=== PATIENT | female | born 1990 ===

== ENCOUNTER 2018-03-19 15:15 | Emergency (ER) | payer OTHER ==
[2018-03-19 15:26] VITALS: RESP 16
--- NOTE | 2018-03-19 16:29 | ED PDOC ---
HPI: Abdomen Time Seen by Provider: 03/19/18 16:10 Chief Complaint (Nursing): GI Problem Chief Complaint (Provider): Nausea and inability to tolerate PO History Per: Patient History/Exam Limitations: no limitations Onset/Duration Of Symptoms: Days (x2 weeks) Current Symptoms Are (Timing): Still Present Associated Symptoms: Nausea, Vomiting (slight), Loss Of Appetite. denies: Fever , Chills, Diarrhea, Chest Pain Additional Complaint(s): Eva Cameron is a 27 year old female, with no significant past medical history, who presents to the emergency department complaining of nausea and inability to tolerate PO intake onset for x2 weeks. Patient is aware of her and has an appointment on 03/30/18 but states it too far away and couldn't wait. Patient states she is unable to keep any food or liquids down and has tried different liquids but vomits it up. Patient further states she feels like she will faint. She denies any fever, chills, chest pain, shortness of breath or diarrhea. She is currently taking vitamins. No further medical complaints. PMD: None provided. Past Medical History Reviewed: Historical Data, Nursing Documentation, Vital Signs Vital Signs: Last Vital Signs Temp 98.2 F 03/19/18 15:24 Pulse 78 03/19/18 15:24 Resp 16 03/19/18 15:24 BP 119/65 03/19/18 15:24 Pulse Ox 99 03/19/18 17:11 - Medical History PMH: No Chronic Diseases - Surgical History Surgical History: No Surg Hx - Family History Family History: States: Unknown Family Hx - Social History Current smoker - smoking cessation education provided: No Alcohol: None Drugs: Denies - Home Medications Home Medications: Ambulatory Orders Medication Instructions Recorded Ondansetron [Zofran] 4 mg PO Q8H PRN #6 tab 09/23/15 Famotidine [Pepcid] 20 mg PO BID #28 tab 03/19/18 Ondansetron [Zofran] 4 mg PO Q8H #9 tab 03/19/18 - Allergies Allergies/Adverse Reactions: Allergies Allergy/AdvReac Type Severity Reaction Status Date / Time No Known Allergies Allergy Verified 09/23/15 13:38 Review of Systems ROS Statement: Except As Marked, All Systems Reviewed And Found Negative Constitutional: Negative for: Fever, Chills Cardiovascular: Negative for: Chest Pain Respiratory: Negative for: Shortness of Breath Gastrointestinal: Positive for: Nausea, Vomiting (slight), Other (inability to tolerate PO intake). Negative for: Diarrhea Neurological: Positive for: Other (feels like she is about to faint) Physical Exam - Reviewed Nursing Documentation Reviewed: Yes Vital Signs Reviewed: Yes - Physical Exam Appears: Positive for: Non-toxic, No Acute Distress Head Exam: Positive for: ATRAUMATIC, NORMAL INSPECTION, NORMOCEPHALIC Skin: Positive for: Normal Color, Warm, Dry Eye Exam: Positive for: Normal appearance, EOMI, PERRL ENT: Positive for: Normal ENT Inspection (moist mucous membranes) Neck: Positive for: Painless ROM Cardiovascular/Chest: Positive for: Regular Rate, Rhythm. Negative for: Murmur Respiratory: Positive for: Normal Breath Sounds. Negative for: Respiratory Distress Gastrointestinal/Abdominal: Positive for: Normal Exam, Soft. Negative for: Tenderness Back: Positive for: Normal Inspection Extremity: Positive for: Normal ROM (upper and lower extremities). Negative for : Deformity, Swelling Neurologic/Psych: Positive for: Alert, Oriented (x3). Negative for: Motor/ Sensory Deficits - ECG O2 Sat by Pulse Oximetry: 99 (RA) Pulse Ox Interpretation: Normal Medical Decision Making Medical Decision Making: Time: 16:10 Initial Impression: related symptoms Initial Plan: --Urine dipstick -- test --Zofran Inj 4 mg IM --Reevaluation -Patient refused labs stating she wants to leave quick. ~ Scribe Attestation: Documented by Jared Khoury, acting as a scribe for Francesca Bhatti MD. Provider Scribe Attestation: All medical record entries made by the Scribe were at my direction and personally dictated by me. I have reviewed the chart and agree that the record accurately reflects my personal performance of the history, physical exam, medical decision making, and the department course for this patient. I have also personally directed, reviewed, and agree with the discharge instructions and disposition. Disposition - Clinical Impression Clinical Impression: Nausea and vomiting in - Patient ED Disposition Is Patient to be Admitted: No Doctor Will See Patient In The: Office Counseled Patient/Family Regarding: Diagnosis, Need For Followup, Rx Given - Disposition Referrals: [facility] [Outside] [facility] [Outside] [facility] [Outside] Disposition: Routine/Home Disposition Time: 17:00 Condition: IMPROVED Prescriptions: Famotidine [Pepcid] 20 mg PO BID #28 tab Ondansetron [Zofran] 4 mg PO Q8H #9 tab Instructions: Nausea and Vomiting of (DC) Forms: [facility] (Filipino) Print Language: [place] - POA Present On Arrival: None
[2018-03-19 18:02] VITALS: BP 126/65; PULSE 68; TEMP 98; O2SAT 100
== END 2018-03-19 17:55 | disposition home or self-care (01) ==
LOC: H.ER 15:15
DX: O21.9 Vomiting of pregnancy, unspecified (principal)
CPT/HCPCS: 96372; 99283; J2405

== ENCOUNTER 2018-11-09 07:24 | Inpatient (IN) | payer MEDICAID, SELFPAY ==
[2018-11-09 07:54] VITALS: BMI 41.1
[2018-11-09] MEDS ORDERED: Lactated Ringer's 1,000 ML IV ONE ×2 (07:54→07:56)
[2018-11-09 08:45] LABS: BASO % 0.3 % (0.0-2.0); EOS # 0.1 K/uL (0.0-0.7); EOS % 1.1 % (0.0-4.0); HEMOGLOBIN 11.6 g/dL (12.0-16.0); LYMPH # 1.9 K/uL (1.0-4.3); LYMPH % 22.4 % (20.0-40.0); MEAN CELL VOLUME 86.7 fl (81.0-99.0); MEAN CORPUSCULAR HEMOGLOBIN 28.5 pg (27.0-31.0); MEAN CORPUSCULAR HGB CONC 32.8 g/dL (33.0-37.0); MEAN PLATELET VOLUME 10.7 fl (7.2-11.7); MONO # 0.4 K/uL (0.0-0.8); MONO % 4.2 % (0.0-10.0); NEUT # 6.2 K/uL (1.8-7.0); NRBC % 0.1 % (0.0-0.0); RBC 4.06 Mil/uL (3.80-5.20); RED CELL DISTRIBUTION WIDTH 16.7 % (11.5-14.5); WHITE BLOOD COUNT 8.6 K/uL (4.8-10.8)
[2018-11-09 11:46] VITALS: O2SAT 100
[2018-11-09] MEDS ORDERED: Oxytocin 30 UNIT in NS 500 ml 30 UNITS/500 ML BAG IV ONE ×2 (16:15→21:54)
[2018-11-09] MEDS ORDERED: Fentanyl/Bupivacaine HCl 250 ML EPI ONE (19:10)
[2018-11-09] MEDS ORDERED: Bupivacaine HCl 0.5% PF (30 ml) Inj ONE (19:47)
[2018-11-09] MEDS ORDERED: OXYTOCIN/0.9 % NS 20 UNIT/1,000 ML BAG IV SCH (22:00)
[2018-11-09] MEDS ORDERED: Lidocaine Hydrochloride 0 ML INJ ONE (22:12)
[2018-11-09] MEDS ORDERED: Lidocaine Hydrochloride 10 ML INJ ONE (22:16)
[2018-11-09] MEDS ORDERED: Oxycodone/Acetaminophen 5/325 mg Tab PO PRN (22:30)
[2018-11-09] MEDS ORDERED: Benzocaine/Menthol SPRAY TOP PRN (22:30)
--- NOTE | 2018-11-09 22:36 | OBADHP ---
Datetime: 11/09/2018 08:01 Admit Comment, IP Provider: PNP: [facility] 28 y/o @ 41 wks w/FAREED 11/02/2018 based on LMP (01/26/2018) is presenting for induction of lab or. She reports some lower abdominal pressure, + FM, and denies fluid loss/vb. Denies f/c/n/v/cp, sob or lightheadedness. OBGYNhx: x 2 (2009, 2015); termination- 2013 PMH: obesity Meds: PNV Allergies: NKA Surghx: denies Sochx: denies etOH, elicit drug or cigarette use ROS: 12 points reviewed and are neg unless otherwise mentioned in HPI VS: wnl Gen: obese female breathing comfortably in no distress Cardio: RRR Lungs: cta b/l Abd: gravid, nontender, no rigidity, no guarding [place]: reactive, reassuring Pelvic: fingertip, 30%, -3 Ext: nonedematous A/P: 28 y/o , clinically stable, @ 41 wks w/FAREED 11/02/2018 based on LMP (01/26/2018) here for IOL. -Pelvic: fingertip, 30%, -3 -Admit to unit -Initiate labor protocol -Cytotec 25mcg Q4 -Continue FHR monitoring Patient seen and examined with Dr. Mechelle Scruggs, PGY-1 Addendum: Patient was seen and evaluated with resident and I agree with the above assessment. Extremities - PN: Normal Abdomen - PN: Normal Lungs - PN: Normal Heart - PN: Normal Gestation - Est Wks by US: 41.0 IP Hx Assessment: The History has been Reviewed and is Current Vital Signs Provider: Reviewed; Within Normal Limits IP Chief Complaint: Scheduled induction of labor NICHD Variability Prov Fetus A: Moderate 6-25bpm NICHD Accel Fetus A IP Provider: [id number] FHR Category Provider Fetus A: Category I NICHD Decel Fetus A IP Provider: None IP Adm Impression: Term, intrauterine ; No Active Labor IP Admit Plan: Admit to unit; Initiate labor induction protocol
--- NOTE | 2018-11-09 22:36 | OBDS ---
DELIVERY PERSONNEL Delivery Doctor: Tiffanie Min MD Scrub Nurse: Nell Morillo Submersible Pilot: Darlin Brookeharvinder RN MATERNAL INFORMATION Delivery Anesthesia: Epidural Provider Comments: Uncomplicated spontaneous vaginal delivery of a viable male infant with antonio ght of 10Ibs 0.3 oz and scores of 9 and 9 delivered in the left OA positioning over an intact p erineum. EBL- 300mls Patient tolerated the procedure well. LABOR SUMMARY No. Babies in Womb: 1 Attempted: No Labor Anesthesia: Epidural LABOR INFORMATION Cervical Ripening Agents: Cytotec @ Other Ripening Agents: pitocin Group B Beta Strep: Negative Antibiotics # of Doses: 0 Antibiotics Time of Last Dose: n/a Steroids Given: None Reason Steroids Not Administered: Not Applicable MEMBRANES Membranes Rupture Method: Artificial Rupture of Membranes: 11/09/2018 21:45 Amniotic Fluid Color: Clear Amniotic Fluid Amount: Moderate Amniotic Fluid Odor: None
[2018-11-10] MEDS ORDERED: Oxycodone/Acetaminophen 5/325 mg Tab PO PRN (00:13)
[2018-11-10] MEDS ORDERED: Benzocaine/Menthol SPRAY TOP PRN (00:13)
[2018-11-10 06:19] LABS: BASO % 0.1 % (0.0-2.0); EOS # 0.1 K/uL (0.0-0.7); EOS % 0.8 % (0.0-4.0); HEMOGLOBIN 10.7 g/dL (12.0-16.0); LYMPH # 1.9 K/uL (1.0-4.3); LYMPH % 17.6 % (20.0-40.0); MEAN CELL VOLUME 86.1 fl (81.0-99.0); MEAN CORPUSCULAR HEMOGLOBIN 28.7 pg (27.0-31.0); MEAN CORPUSCULAR HGB CONC 33.3 g/dL (33.0-37.0); MEAN PLATELET VOLUME 10.2 fl (7.2-11.7); MONO # 0.9 K/uL (0.0-0.8); MONO % 8.1 % (0.0-10.0); NEUT % 73.4 % (50.0-75.0); NRBC % 0.1 % (0.0-0.0); RBC 3.74 Mil/uL (3.80-5.20); RED CELL DISTRIBUTION WIDTH 16.7 % (11.5-14.5); WHITE BLOOD COUNT 10.9 K/uL (4.8-10.8)
[2018-11-10] MEDS ORDERED: Influenza Vaccine (5 YR UP)/PF 60 MCG/0.5 ML SYR IM ONE (09:00)
--- NOTE | 2018-11-10 10:11 | OBPPN ---
Datetime: 11/10/2018 06:02 PP Pain Prov: Within normal limits PP Nausea Prov: Denies PP Flatus Prov: Yes PP BM Prov: No PP Heart Prov: Normal PP Lungs Prov: Normal PP Abdomen/Uterus Prov: Normal PP Lochia Prov: Normal PP Extremities Prov: Normal PP C/S Incision Prov: Not Applicable PP Progress Prov: Normal PP Comments Phys Exam Prov: Gen: NAD HEENT: NCAT Cardio: + S1S2, RRR Lungs: CTA B/L, no wheezes, rales or rhonchi Abd: soft, appropriate tenderness to palpation, + BS heard throughout, UB firm below level of umbi licus Ext: No edema, calves non tender PP Impression Prov: Normal progression PP Plan Prov: Continue present management PP Progress Note Prov: Pt is a 28 yo , PPD 1 s/p on 11/09/18, Pt was seen and examined a t bedside this AM. Patient has no complaints, pain controlled well with medication. Patient is ambula ting w.o difficulty. Pt is and bottle feeding without difficulty. and is tolerating reg ular PO diet. Lochia like menses. +Flatus -BM. Denies fevers, chills, dizziness, chest pain, SOB, na usea, vomiting, diarrhea or dysuria. VS: wnl Gen: NAD HEENT: NCAT Cardio: + S1S2, RRR Lungs: CTA B/L, no wheezes, rales or rhonchi Abd: soft, appropriate tenderness to palpation, + BS heard throughout, UB firm below level of umbi licus Ext: No edema, calves non tender H _ H: aCBC: 11.6/35.2, pCBC: pending Assessment: Pt is a 28 yo , PPD 1 s/p on 11/09/18, clinically stable Plan: - and ambulation encouraged. -Continue with Ibuprofen 600mg 1 tab Q 6h PRN mild pain -Continue with Percocet 5/325mg 1 tab Q4h PRN severe pain -Continue with Colace 100mg PO BID -Pt has 4-6 weeks post- visit with Dr. Lane, emailed Leela for 2-3 day visit. -Anticipated D/C- 11/11/18, scripts in chart pending signature Case reviewed and discussed with attending -Mari Vega PGY1 Patient seen and examined by me this am. Agree with above note. --Dr. Beckwith IP PP Procedures: None Vital Signs Provider PP: Reviewed; Within Normal Limits
--- NOTE | 2018-11-11 10:43 | OBPPN ---
Datetime: 11/11/2018 06:14 PP Pain Prov: Within normal limits PP Nausea Prov: Present PP Flatus Prov: Yes PP BM Prov: Yes PP Nausea Prov comment: Nausea no vomiting PP Heart Prov: Normal PP Lungs Prov: Normal PP Abdomen/Uterus Prov: Normal PP Lochia Prov: Normal PP Extremities Prov: Normal PP C/S Incision Prov: Not Applicable PP Progress Prov: Normal PP Comments Phys Exam Prov: Gen: NAD HEENT: NCAT Cardio: + S1S2, RRR Lungs: CTA B/L, no wheezes, rales or rhonchi Abd: soft, appropriate tenderness to palpation, + BS heard throughout, UB firm below level of umbi licus Ext: No edema, calves non tender PP Impression Prov: Normal progression PP Plan Prov: Discharge PP Progress Note Prov: Pt is a 28 yo , PPD 2 s/p on 11/09/18, Pt was seen and examined at bedside this AM. Patient has mild nausea no vomiting, pain controlled well with medication. Patient is ambulating w.o difficulty. Pt is breast and bottle-feeding and is tolerating regular PO diet. Loch ia like menses. +Flatus +BM. Denies fevers, chills, dizziness, chest pain, SOB, vomiting, diarrhea o r dysuria. VS: wnl Gen: NAD HEENT: NCAT Cardio: + S1S2, RRR Lungs: CTA B/L, no wheezes, rales or rhonchi Abd: soft, appropriate tenderness to palpation, + BS heard throughout, UB firm below level of umbi licus Ext: No edema, calves non tender H _ H: aCBC: 11.6/35.2, pCBC: 10.7/32.2 Assessment: Pt is a 28 yo , PPD 2 s/p on 11/09/18, clinically stable Plan: -Baby needs Circumsion -Discharge home today - and ambulation encouraged. -Script given for Ibuprofen 600mg 1 tab Q 6h PRN mild pain #30 No refills -Continue vitamin -If fevers, pain not controlled with medications, vaginal bleeding come back to ED -Avoid stairs, heavy lifting, nothing per vagina/intercourse for 4 weeks -F/u with [facility] in 4-6 weeks for post- visit with Dr. Lane, emailed Br tatiana for 2-3 day visit. Case reviewed and discussed with attending -Mari Vega PGY1 Patient seen and examined by me today. Agree with above note. -- IP PP Procedures: None Vital Signs Provider PP: Reviewed; Within Normal Limits
--- NOTE | 2018-11-11 10:43 | OBDCSUM ---
Datetime: 11/11/2018 06:18 Discharged to, Provider: Home Follow up at, Provider: Dr. Lane Disch Instr Activity: Normal activity Disch Instr Diet: Regular Discharge Instructions, Provider: Routine instructions given Discharge Diagnosis, Provider: Term Delivered Discharge Time: 11/11/2018 06:18 Follow up in weeks, Provider: 4-6 weeks Disch Referrals: None Contraception discussed, Prov: Yes Disch Activity Restrictions: No lifting; Minimize stair-climbing; No sexual activity; Nothing in vag mar - [place], tampons, douche Discharge Comment, Provider: Ob Discharge Summary DOA: 11/09/18 EGA: 41 wks. Diagnosis: IOL, Delivered term M risk factors: Obesity Summary of : . Uncomplicated L_D summary: DOD: 11/09/18 Infant @22:18 , no lacerations NB: M : 9/9 Weight: 4545g summary: No complications during period, pain controlled lochia<menses. CBC : 10.7/32.2 Blood type: B+ DISCHARGE DATA D/C DATE: 11/11/18 TIME: 8:00 AM DISCHARGE INSTRUCTIONS: Encouraged PNV 1 tab po q/day Ibuprofen 600 mg 1 tab po prn q4-6 if mild pain #30. NO REFILL. Ambulate with caution, Avoid stairs, heavy lifting, nothing per vagina/intercourse for 4 weeks If fevers, pain not controlled with medications, vaginal bleeding come back to ED -F/u with [facility] in 4-6 weeks for post- visit with Dr. Lane, emailed B quique for 2-3 day visit. Case reviewed and discussed with attending -Mari Vega PGY1 Contraception after Delivery: IUD
[2018-11-12 01:11] VITALS: BP 122/63; PULSE 69; RESP 20; TEMP 97.8
== END 2018-11-11 21:11 | disposition home or self-care (01) | DRG 560 ==
LOC: H.EROB2 07:24 → H.L&D 07:42 → H.EROB2 08:00 → H.OB/GYN 11-10 00:34
PROVIDERS: ADMIT Obstetrics & Gynecology; ATTEND Obstetrics & Gynecology
PROC: 10E0XZZ Delivery of Products of Conception, External Approach (ICD-10-PCS; principal; 2018-11-09)
PROC: 4A1HXCZ Monitoring of Products of Conception, Cardiac Rate, External Approach (ICD-10-PCS; 2018-11-09)
DX: O48.0 Post-term pregnancy (principal); Z37.0 Single live birth; Z3A.41 41 weeks gestation of pregnancy